=== PATIENT | male | born 1955 | race African-American/Black ===

== ENCOUNTER → 2022-02-25 | Outpatient (CLI) | payer OTHER ==
[~2022-02-25] MED LIST: ASPIRIN 81M81 MG/TA2 PO; CIPRO 500MG TA500 MG PO; FLOMAX 0.40.4 MG/CAP PO; GLUCOPHAGE500 MG/TAB PO; VITAMIN D 400400 IU PO; ZESTRIL 5MG5 MG PO; ZOCOR5 MG PO
== END ==
LOC: COL.RAD 10:17
DX: D72.820 Lymphocytosis (symptomatic) (principal); R63.4 Abnormal weight loss
CPT/HCPCS: Q9967

== ENCOUNTER 2022-07-17 16:03 | Inpatient (IN) | payer OTHER ==
[~2022-07-17] VITALS: Ht 177.8 cm; Wt 79.5 kg
[2022-07-17 16:48] LABS: HEMATOCRIT 37.7 % (42.0-52.0); HEMOGLOBIN 12.6 g/dl (13.5-18.0); MEAN CELL VOLUME 86 fl (80.0-100.0); MEAN CORPUSCULAR HEMOGLOBIN 29 pg (27-31); MEAN CORPUSCULAR HGB CONC 33 g/dl (33.0-37.0); MEAN PLATELET VOLUME 9.9 fl (7.4-10.4); PLATELET COUNT 227 K/mm3 (130-400); RED BLOOD COUNT 4.38 M/mm3 (4.20-5.60)
[2022-07-17 16:53] LABS: INR 1.1 (0.8-3.0); PROTHROMBIN TIME 13.1 SECONDS (9.7-12.8)
[2022-07-17 17:06] LABS: ALBUMIN 3.9 gm/dL (3.4-4.8); BILIRUBIN,TOTAL 0.3 mg/dL (0.2-1.2); CREATININE, serum 1.06 mg/dL (0.72-1.25); POTASSIUM 3.6 mmol/L (3.5-4.5); TOTAL PROTEIN 7.4 gm/dL (6.2-8.1)
[2022-07-17 17:47] LABS: LYMPHOCYTE 58 % (20.0-51.0); NEUTROPHILS 37 % (42.0-75.2); PLATELET ESTIMATE NORMAL (NORMAL)
[2022-07-17] MEDS ORDERED: PRINIVIL40 MG PO (20:42)
[2022-07-17 21:53] VITALS: BP 134/71; PULSE 66; TEMP 98.3
[2022-07-17 23:35] VITALS: BP 126/67; PULSE 55; TEMP 97.7
[2022-07-17] MEDS ORDERED: GLUCOPHAGE1000 MG PO (23:54)
[2022-07-17] MEDS ORDERED: HCTZ 25MG TAB25 MG PO (23:54)
[2022-07-17] MEDS ORDERED: FERROUSAL325 MG PO (23:55)
[2022-07-18 04:37] VITALS: BP 121/65; PULSE 49; TEMP 98.2
--- NOTE | 2022-07-18 07:10 | NUR ---
pt admitted for slurred speech and unsteady gait, assisting to restroom with x1 staff, placed on fall risk protocol, IVF infusing per PIV @ 100 cc/hr, tolerated bedside swallow without difficulty, given sandwich box after arrival to room. [place] in to see pt, oriented to room, poc. reports this am that speech is still slurred, still unsteady, no new neuro changes noted.
[2022-07-18 07:29] LABS: EOS # 0.1 K/mm3 (0.0-0.7); GRAN # 1.4 K/mm3 (1.4-6.5); GRAN % 35.1 % (42.2-75.2); HEMOGLOBIN 11.9 g/dl (13.5-18.0); LYMPH # 2.1 K/mm3 (1.2-3.4); LYMPH % 51.4 % (20.0-51.0); MEAN CELL VOLUME 85 fl (80.0-100.0); MEAN CORPUSCULAR HEMOGLOBIN 29 pg (27-31); MEAN CORPUSCULAR HGB CONC 34 g/dl (33.0-37.0); MEAN PLATELET VOLUME 10.5 fl (7.4-10.4); MONO # 0.4 K/mm3 (0.1-0.6); MONO % 10.3 % (1.7-9.3); PLATELET COUNT 204 K/mm3 (130-400); RED BLOOD COUNT 4.12 M/mm3 (4.20-5.60); REDCELL DISTRIBUTION WIDTH-CV 12.9 % (11.5-14.5)
[2022-07-18 07:31] LABS: HEMATOCRIT 35.1 % (42.0-52.0)
[2022-07-18 07:45] VITALS: BP 127/69; PULSE 66; TEMP 98.3
[2022-07-18 07:56] LABS: MAGNESIUM 1.8 mg/dL (1.6-2.6); PHOSPHOROUS 3.7 mg/dL (2.3-4.7)
[2022-07-18 09:13] LABS: CALCIUM 9.2 mg/dL (8.4-10.2); CHOLESTEROL RISK RATIO 4.4; CREATININE, serum 0.85 mg/dL (0.72-1.25); POTASSIUM 3.7 mmol/L (3.5-4.5)
--- NOTE | 2022-07-18 09:45 | NUR ---
Pt Ox4, VSS, neuros checks negative. Pt denies ASHTON, dizziness upon standing or trouble with speech at this time. IV Fluids continue per order. EKG, ECHO and UA complete. Awaiting MRI.
[2022-07-18 10:13] LABS: COLLECTION METHOD CLEAN CATCH
[2022-07-18 10:29] LABS: SQUAMOUS EPITHELIAL 0-2 /hpf (0-10); URINE BACTERIA None Seen /hpf (NONE SEEN); URINE RBC 0-2 /hpf (0-2)
[2022-07-18 10:30] LABS: PH 8.5 (5.0-8.5); URINE APPEARANCE Clear (CLEAR/HAZY); URINE BLOOD TRACE-INTACT (NEGATIVE); URINE COLOR Yellow (YELLOW); URINE GLUCOSE Negative (NEGATIVE); URINE KETONE Negative (NEGATIVE); URINE NITRATE Negative (NEGATIVE); URINE PROTEIN(semi-quant) Negative (NEGATIVE); URINE UROBILINOGEN 0.2 E.U/dL (0.2-1.0)
--- NOTE | 2022-07-18 10:30 | NUR ---
Initial visit; Patient very pleasant and smiles easily. He thanked Sleep Lab Technician for looking in on him and keeping him in Sleep Lab Technician's prayers. Sleep Lab Technician will follow up.
--- NOTE | 2022-07-18 11:44 | NUR ---
CHERIE met with the patient's , Inocencia (ph#[phone]), to discuss discharge plan. The patient was in a procedure/test. The patient lives in [place] with his . Inocencia reports that the patient is independent with ADLs and does not have any DME. The patient's PCP is Dr. Rosetta Anthony and he receives his medications from [facility]. PT has worked with the patient and recommend outpatient PT. CHERIE discussed this with Inocencia. Inocencia states that they would be interested in this, but they would need to coordinate an appointment that works with their daughter. She would provide transportation. They would like to make the appointment. CHERIE gave Inocencia a list of the local outpatient therapy clinics. She had no other questions or concerns for CHERIE at this time. *Discharge plan: home with and outpatient PT*
[2022-07-18 12:55] VITALS: BP 131/59; PULSE 61; TEMP 98.7
[2022-07-18 15:55] VITALS: BP 128/73; PULSE 60; TEMP 98.7
[2022-07-18 20:21] VITALS: BP 116/70; PULSE 63; TEMP 98.5
--- NOTE | 2022-07-18 23:32 | NUR ---
Patient assessed around 2029. Denies having pain and discomfort. Peripheral INT to right AC. No weakness noted. Voices no questions, needs, or concerns at this time. In bed with call light within reach.
[2022-07-19 00:38] VITALS: BP 109/77; PULSE 61; TEMP 98.8
[2022-07-19 04:14] VITALS: BP 123/61; PULSE 54; TEMP 98.4
--- NOTE | 2022-07-19 06:32 | NUR ---
Patient has denied pain and discomfort this shift. Voices no questions, needs, or concerns at this time. No change in neuro checks noted this shift. In bed with call light within reach. High fall risk precautions in place. Bed alarm on.
[2022-07-19 08:13] VITALS: BP 126/65; PULSE 69; TEMP 98.2
[2022-07-19] MEDS ORDERED: PLAVIX 75MG TAB75 MG PO (09:03)
[2022-07-19] MEDS ORDERED: LOPID 600M600 MG/TAB PO (09:04)
[2022-07-19] MEDS ORDERED: ASPIRIN 81M81 MG/TA2 PO (09:04)
--- NOTE | 2022-07-19 10:05 | NUR ---
Follow-up visit; Patient and his family thanked for stopping in again today to wish him well. received another smile from Elvin this morning.
--- NOTE | 2022-07-19 11:25 | NUR ---
Discussed d/c with pt and family. Daughter and wifes questions answered. Pt instructed to restart home meds and p/u new Rx at [facility]. IV d/c complete/intact. Pt and family acknowledge understanding of d/c. and daughter take pt belongings. Pt escorted from facility via WC.
--- NOTE | 2022-07-19 11:36 | NUR ---
The hospitalist notified CHERIE that the patient is now considering home health over outpatient therapy. CHERIE met with the patient, his , and daughter to address the above. The patient's confirms that it would be easier for them to just do home health. Their daughter lives in [place]. CHERIE provided them with Medicare[employer]gov's list of home health agencies that serve [place]. The patient's chose [facility]. CHERIE contacted and faxed a referral to Montrell at [facility]. Montrell states that they are able to take him, but since the patient's insurance is [employer], the hospital would have to submit an outpatient request for service form. This can be done on [employer]'s website. CHERIE submitted the form. AuthID#[id number]. The patient is to discharge back home with his today, 07/19, with home health services for intermediate/PT/OT from [facility]. CHERIE notified and faxed orders to Montrell at [facility]. No additional needs at this time.
== END 2022-07-19 11:25 | disposition home health service (06) | DRG 65 ==
LOC: COL.ER 16:03 → MEDICAL 19:51
PROVIDERS: Nurse Practitioner Family; Personal Emergency Response Attendant; ADMIT Student in an Organized Health Care Education/Training Program
DX: I63.81 Other cerebral infarction due to occlusion or stenosis of small artery (principal); E87.1 Hypo-osmolality and hyponatremia; I10 Essential (primary) hypertension; E78.5 Hyperlipidemia, unspecified; E11.9 Type 2 diabetes mellitus without complications; F17.210 Nicotine dependence, cigarettes, uncomplicated; R27.0 Ataxia, unspecified; R13.10 Dysphagia, unspecified; R13.0 Aphagia; R00.1 Bradycardia, unspecified; D64.9 Anemia, unspecified; R47.81 Slurred speech; Z79.84 Long term (current) use of oral hypoglycemic drugs; Z79.899 Other long term (current) drug therapy
CPT/HCPCS: A9575; G0378; J1650; J7030; Q9967